=== PATIENT | male | born 1960 | race Hispanic/Latino ===

== ENCOUNTER 2025-01-18 05:51 | Day surgery (SDC) | payer OTHER ==
[2025-01-16 09:45] VITALS: BP 149/62; PULSE 70; RESP 13; TEMP 97.9
[2025-01-16 09:48] LABS: IMMATURE GRANULOCYTE ABSOLUTE 0.02 K/uL (0-1); NUCLEATED RED BLOOD CELLS 0.0 % (0.0-0.19); PLATELET COUNT (AUTO) 285 K/uL (130-400); RED BLOOD CELL COUNT(AUTO) 3.44 MIL/uL (4.50-6.20); RED CELL DISTRIBUTION WIDTH 17.3 % (11.0-15.5); WHITE BLOOD COUNT (AUTO) 7.4 K/uL (4.8-10.8)
[2025-01-16 09:59] LABS: APPEARANCE,URINE CLEAR (CLEAR); GLUCOSE, URINE (UA) NEGATIVE (NEGATIVE); LEUKOCYTE ESTERASE ,URINE NEGATIVE Leu/uL (NEGATIVE); NITRATE,URINE NEGATIVE (NEGATIVE); OCCULT BLOOD,URINE NEGATIVE (NEGATIVE)
[2025-01-16 10:01] LABS: CREATININE 1.2 mg/dL (0.5-1.3); GLOMERULAR FILTR. RATE CALC 68.0 mL/min (>90); GLUCOSE,RANDOM 123.0 mg/dL (70-105); SODIUM SERUM 144.0 mmol/L (136-145); UREA NITROGEN, BLOOD 18.0 mg/dL (7-18)
[2025-01-16 10:02] LABS: ADD UA MICROSCOPIC YES
[2025-01-16 10:04] LABS: SQUAMOUS EPITHELIAL CELL,UR FEW /HPF (0-2)
[2025-01-16 10:07] LABS: INR 0.95 (0.85-1.15)
--- NOTE | 2025-01-16 11:12 | EKG ---
[facility] Test Date: 2025-01-16 Test Time: 09:37:16 Pat Name: PIPPA SEYMOUR Department: [facility] Room: Gender: M Shift Supervisor Melting: [phone] : 1960 Requested By: LIVE RAMIRES Order Number: [id number] Reading MD: Mika Caballero Measurements Intervals Index Rate: 71 P: 49 AR: 217 QRS: 15 QRSD: 92 T: 43 QT: 398 QTc: 434 Interpretive Statements Sinus rhythm Borderline prolonged AR interval No previous ECG available for comparison Electronically Signed On 01-16-2025 19:17:06 CDT by Mika Caballero Please click the below link to view image of tracing.
--- NOTE | 2025-01-16 16:53 | HMCIMG ---
EXAM: CR Chest, 1 View. CLINICAL HISTORY: PRE OP COMPARISON: None provided. FINDINGS: LUNGS: There is no mass, infiltrate, or acute pulmonary abnormality. PLEURAL SPACES: No evidence of pleural effusion or pneumothorax. MEDIASTINUM: The cardiomediastinal silhouette is within normal limits. BONES: No acute osseous abnormality. IMPRESSION: No acute cardiopulmonary pathology is evident. /[place]
--- NOTE | 2025-01-17 16:53 | NUR ---
RE: LABS CBC RESULTS REPORTED TO DR RAMIRES, NO NEW ORDERS RECEIVED.
[2025-01-18] VITALS (14 sets, daily range): BP systolic 105–127; BP diastolic 52–70; PULSE 54–81; RESP 13–18; TEMP 97.7
[~2025-01-18] VITALS: Ht 180.3 cm; Wt 119.8 kg
[~2025-01-18 05:51] MED LIST: ALLO100T PO; ASPI-1443 PO; BACL10TA PO; CLON0.1T PO; ERGO500093 PO; FERS325 PO; GABA-1555 PO; HYDR50TA37 PO; MULT-1289 PO; OMEP40CA21 PO; ROSU5TAB51 PO; SUCR1TAB2 PO; TELM80TA10 PO; TIRZ10PE SQ; TIZA4CAP8 PO; VERA120T92 PO
[2025-01-18] MEDS: 0.9%NACL 1000ML 1,000 ML IV SCH (06:46)
[2025-01-18] MEDS ORDERED: IOHEXOL 350 MG/ML 100ML INFUS..BTL IV ONE ×2 (07:18→09:33)
[2025-01-18] MEDS ORDERED: LIDOCAINE HCL 400MG/20ML VIAL ONE (07:18)
[2025-01-18] MEDS ORDERED: HEParin-NS 1,000 UNIT/500 ML 1,000 ML IV ONE (07:19)
[2025-01-18] MEDS ORDERED: NITROGLYCERIN 50MG VIAL ONE (07:20)
[2025-01-18] MEDS ORDERED: MIDAZOLAM HCL 1 MG/ML 2ML VIAL ONE ×2 (07:45→10:07)
[2025-01-18] MEDS ORDERED: HEParin-NS 1,000 UNIT/500 ML 500 ML IV ONE (09:07)
[2025-01-18] MEDS ORDERED: ASPIRIN 325MG EC TAB PO ONE (10:44)
--- NOTE | 2025-01-18 11:25 | PRN ---
PROCEDURE NOTE Indications: 1. SHAW (anginal equivalent) 2. Abnormal coronary CTA done 03/21/2024 3. Symptomatic PVCs 4. VT status post SQ AICD placement 5. HTN 6. HLP Procedures: LHC, coronary angiogram, balloon angioplasty and drug coated balloon angioplasty in the distal LAD and distal LAD near the apex, femoral angiogram Introduction: After informed written consent was obtained, the patient was brought to the Catheterization Lab in the usual fasting state. Following sterile prep and drape, a time out was performed, then moderate sedation was administered, 1mg of Versed and 25mcg of Fentanyl, then 1% Lidocaine was infiltrated into the right wrist. Using a Modified Seldinger technique, a 6Fr Sheath was inserted into the right radial artery. While under fluoroscopic guidance, diagnostic coronary catheters were advanced over a wire into the central circulation where they were aspirated, flushed and placed to pressure monitoring, once the wire was removed. Coronary Angio: The left and right coronary arteries were engaged with appropriate catheters and angiography was performed under continuous pressure monitoring. Left Heart Catheterization: A JR catheter was inserted into the LV and the pressure was recorded, then the catheter was removed from the LV. Cardiac Findings: Right dominant system LM: Large caliber vessel with mild luminal irregularities. The vessel bifurcates into the LAD and LCX. LAD: Medium caliber vessel with 30-40% stenosis in the proximal and mid LAD. 80% stenosis in the distal LAD and 95% stenosis in the distal LAD (near the apex). JANICE 3 blood flow distally. Diagonal 1: Small caliber vessel with mild luminal irregularities Diagonal 2: Small caliber vessel with mild luminal irregularities LCx: Medium caliber vessel with 20% stenosis in the proximal to mid LCX. OM 1: Medium caliber vessel with 40% stenosis in the mid segment of the vessel OM 2: Small caliber vessel with mild luminal irregularities OM 3: Small caliber vessel with mild luminal irregularities OM 4: Small caliber vessel with mild luminal irregularities RCA: Large caliber vessel with 30% stenosis in the proximal RCA. The rest of the vessel has mild luminal irregularities RPDA: Medium caliber vessel with mild luminal irregularities RPLV: Medium caliber vessel with mild luminal irregularities LVEDP: 10mmHG Medications given: Versed 3mg, Fentanyl 100mcg, Heparin 87443, nitroglycerin 800mcg, nicardipine 300mcg Coronary Intervention: Guide catheter: JL3.5 and XB 3.5 Guidewire: 0.014 run-through After reviewing the above-mentioned findings the decision was made to intervene on the LAD. The JL 3.5 guide catheter was advanced into the ostium of the left main. We then advanced a six [place] guide liner into the mid LAD and advanced the 0.014 run-through guidewire across the areas stenosis and into the distal LAD past the apex. We then attempted to perform balloon angioplasty but despite multiple attempts there was no support from the JL 3.5 guide catheter. The decision was made to abort the radial approach. We removed the guide catheter, guide liner, and 0.014 run-through guidewire. We then administered 1% lidocaine into the right groin and using a modified Seldinger technique inserted a six [place] arterial sheath into the right common femoral artery. We then advanced an XB 3.5 guide catheter and 0.014 run-through guidewire into the ostium of the left main. We then advanced the 0.014 run-through guidewire across the areas stenosis and into the distal LAD, near the apex. We then advanced a six [place] guide liner into the mid LAD and performed balloon angioplasty (1.25 x 12mm > 1.5 x 12mm > 2.0 x 10mm > 2.0 x 12mm) in the distal LAD and distal LAD near the apex. We then performed drug coated balloon angioplasty ([employer] 2.5 x 30mm and 2.5 x 20mm) in the distal LAD and distal LAD near the apex. The balloons were then removed and repeat angiography was performed which revealed widely patent LAD without dissection, or perforation, and JANICE 3 blood flow distally. The 0.014 run-through guidewire 10 XB 3.5 guide catheter were then removed. The patient tolerated the procedure well and without issue. Complications: None Conscious Sedation Monitoring: Under my direct order and supervision, medication for moderate conscious sedation was administered by the nursing staff and the patients level of consciousness and physiological status was monitored by an independent trained nurse. Closure of Access Site: After the case completed the sheath was pulled and a 6Fr Angioseal was deployed in the right common femoral artery without complication. The radial sheath was then removed and a TR band was applied to the right radial artery and was inflated until hemostasis was achieved. Conclusion: 1. 1V CAD, 80% stenosis in the distal LAD and 95% stenosis in the distal LAD (near the apex) status post successful treatment with balloon angioplasty and drug coated balloon angioplasty, resulting in widely patent arteries, without dissection, or perforation, and JANICE 3 blood flow distally 2. Nonobstructive CAD in the proximal and mid LAD, proximal to mid LCX, OM1, and proximal RCA 3. SHAW (anginal equivalent) 4. Abnormal coronary CTA done on 03/21/2024 5. Symptomatic PVCs 6. VT s/p SQ AICD placement 7. HTN 8. HLP Recommendation: 1. Continue goal-directed medical therapy 2. 4 hours of bedrest 3. Groin precautions 4. Start NS at 100 mL/hour x3 hours 5. Okay to DC once bed restless complete in the right groin is soft, and free of bruising, bleeding, and or hematoma formation. 6. No driving for the next 48 hours. 7. No heavy lifting or strenuous exercise for the next two weeks. 8. The patient will be started on clopidogrel 75 mg daily. He will continue aspirin 81 mg daily. He will remain on DAPT for a minimum of six months and optimally one year. 9. Please have the patient follow up with Dr. Koch in 1-2 weeks. LIVE KOCH MD Jan 18, 2025 11:25
[2025-01-18] MEDS ORDERED: GLUCAGON 1MG KIT 1 MG ML IM PRN (11:30)
[2025-01-18] MEDS ORDERED: DEXTROSE 50%-WATER 50 ML DISP.SYRIN IV PRN (11:30)
[2025-01-18] MEDS ORDERED: 0.9%NACL 1000ML 1,000 ML IV SCH (11:30)
--- NOTE | 2025-01-18 12:30 | NUR ---
URINARY: VOIDED 400 CC CLEAR YELLOW COLOR URINE PER URINAL WITHOUT DIFFICULTY.
--- NOTE | 2025-01-18 14:18 | NUR ---
REPORT: HANDS OFF COMMUNICATION GIVEN TO ALAN WALDEN RN.
== END 2025-01-18 16:32 | disposition home or self-care (01) ==
LOC: DAH 05:51
PROVIDERS: ATTEND Internal Medicine Cardiovascular Disease
DX: R06.09 Other forms of dyspnea (principal); I25.10 Atherosclerotic heart disease of native coronary artery without angina pectoris; I10 Essential (primary) hypertension; E78.5 Hyperlipidemia, unspecified; E11.9 Type 2 diabetes mellitus without complications; Z85.46 Personal history of malignant neoplasm of prostate; Z98.1 Arthrodesis status; Z95.810 Presence of automatic (implantable) cardiac defibrillator; G47.33 Obstructive sleep apnea (adult) (pediatric); Z79.01 Long term (current) use of anticoagulants; Z99.89 Dependence on other enabling machines and devices; Z79.82 Long term (current) use of aspirin; Z79.899 Other long term (current) drug therapy
CPT/HCPCS: 80048; 83880; 85025; 85610; 85730; 81001; 36415; 71045; 93005; 92920; 85347 ×4; 82948 ×2; 99156; 99157 ×5; 93458; C1769 ×3; C1887 ×3; C1894 ×3; C1725 ×3; C1713; C1760; A4649; J3010; J3490 ×3; J7030; J1644 ×4; J2250 ×2; Q9967 ×2; A4215; A4222; A6260; A4221; A4663; A4216; A6206; A4606; Q9965 ×3; A4223 ×3; 96360; 96361